=== PATIENT | female | born 1985 | race Caucasian/White ===

== ENCOUNTER 2022-04-02 16:14 | Emergency (ER) | payer BC, SELFPAY ==
[2022-04-02 16:34] VITALS: BP 190/101; PULSE 93; RESP 16; TEMP 36.7; O2SAT 98; BMI 56.5
--- NOTE | 2022-04-02 16:34 | [facility].EDGENADL ---
Discharge Plan Disposition Patient Disposition: Home, Self-Care Condition: Good Referrals Follow up/Referrals: Kerwin Garcia [Primary Care Provider] - See instructions Activity Restrictions/Add. Instructions Additional Instructions/Restrictions: Follow-up with your primary care doctor as needed. Return to the emergency department if you feel worse in any way. Clinical Impressions Clinical Impression: Laceration of hand Qualifiers: Encounter type: initial encounter Laterality: right Discharge ED Provider: Tasneem Ashford General Adult HPI General Chief complaint: PAIN Stated complaint: 0113@Home Nail went into R Hand Neck andback Time Seen by Provider: 04/02/22 16:34 Mode of Arrival: Ambulatory Source of Information: Patient and Spouse History of Present Illness HPI narrative: The patient complains of some lower back pain and neck pain since yesterday. Her coworkers told her that it may be tetanus because she fell on a nail with her right hand about 10 days ago. Her last tetanus immunization was 2008. The patient denies any other symptoms. Related Data Allergies Allergy/AdvReac Type Severity Reaction Status Date / Time cefaclor [From Ceclor] Allergy Verified 04/02/22 16:37 [facility] Disclaimer: The information contained in this section may have been updated after the patient was seen, as this information can be updated by other users. Social History Smoking Status: Never smoker alcohol intake: current current occupational status: employed Travel in the last 8 weeks: None ROS Obtained: Yes All systems reviewed & no additional complaints except as documented Physical Exam General General appearance: alert Head Head exam: atraumatic Eye Eye exam: Present normal appearance, PERRL and EOMI ENT ENT exam: Present normal exam Neck Neck exam: Present normal inspection and full ROM; Absent tenderness or meningismus Chest Chest inspection: Present normal inspection and symmetric chest wall rise; Absent tenderness Respiratory Respiratory exam: Present normal lung sounds bilaterally; Absent respiratory distress or accessory muscle use Cardiovascular Cardiovascular exam: Present regular rate, normal rhythm and normal heart sounds Abdominal Exam Abdominal exam: Present soft and normal bowel sounds; Absent distention, tenderness, heel tap sign, Munoz's sign, Rovsing's sign, tenderness at McBurney's Point or mass Extremities Exam Extremities exam: Present normal inspection, full ROM and other (There is a healed wound to the proximal palm of the right hand. There is no evidence of erythema or infection.) Back Exam Back exam: Present normal inspection; Absent CVA tenderness (R) or CVA tenderness (L) Neurological Exam Neurological exam: Present alert, oriented X3, normal gait, motor sensory deficit and reflexes normal Psychiatric Psychiatric exam: Present normal affect and normal mood Skin Skin exam: Present warm, dry, intact and normal color Medical Decision Making Maik Inquiry Pt receiving controlled substance: No Vital Signs: 04/02/22 16:34 04/02/22 16:42 Temperature 98.1 F Temperature Source Oral Pulse Rate 87 Pulse Rate [Left] 93 H Respiratory Rate 16 18 Blood Pressure 163/113 H Blood Pressure [Right Arm] 190/101 H Blood Pressure Mean 129 Blood Pressure Mean [Right Arm] 130 02 Sat by Pulse Oximetry 98 98 Orders (Tests/Meds): ED MEDICATIONS Discontinued Medications Generic Name Dose Route Start Last Admin Trade Name Freq PRN Reason Stop Dose Admin Tetanus/Diphtheria Toxoids 0.5 ml 04/02/22 16:37 Tetanus-Diphth Toxoid, Adult 0.5ml Syr IM 04/02/22 16:38 .ONCE ONE Tetanus/Reduced Diphtheria/Acell Pertussis 0.5 ml 04/02/22 16:33 04/02/22 16:44 Tet/Diphth/Pert-Adult 0.5ml Syringe IM 04/02/22 16:34 0.5 ml .ONCE ONE Administration Medical Decision Narrative: The patient's physical exam is not consistent with tetanus. The patient's hand
[2022-04-02 16:42] VITALS: BP 163/113; PULSE 87; RESP 18; O2SAT 98
[2022-04-02 17:12] VITALS: BP 135/76; PULSE 83; RESP 19; TEMP 36.7; O2SAT 98
[2022-04-02 17:14] VITALS: BP 160/113; PULSE 113; RESP 18; TEMP 36.7
== END 2022-04-02 17:16 | disposition home or self-care (01) ==
PROVIDERS: Emergency Provider Emergency Medicine; PCP Pediatrics
DX: S61.411A Laceration without foreign body of right hand, initial encounter (principal); W45.0XXA Nail entering through skin, initial encounter; M54.2 Cervicalgia; M54.50 Low back pain, unspecified; Z23 Encounter for immunization
CPT/HCPCS: 90471; 90715; 99283; 99284